=== PATIENT | male | born 1975 | race Caucasian/White ===

== ENCOUNTER 2017-11-19 06:19 | Day surgery (SDC) | payer OTHER ==
[2017-11-16 09:15] VITALS: BMI 27.2
[2017-11-19] MEDS ORDERED: MIDAZOLAM HCL 2 MG/2 ML SINGLE DOSE VIAL ONE (07:53)
[2017-11-19] MEDS ORDERED: PROPOFOL 20 ML ONE ×2 (07:53)
[2017-11-19] MEDS ORDERED: LIDOCAINE HCL/PF 2% SDV 5ML VIAL ONE (07:53)
[2017-11-19] MEDS ORDERED: SEVOFLURANE 250 ML BTL ONE (08:33)
[2017-11-19] MEDS ORDERED: LIDOCAINE HCL 2% (20ML MULTI-DOSE VIAL) NR ONE (08:34)
[2017-11-19] MEDS ORDERED: ceFAZolin SODIUM 1 GM VIAL ONE (08:46)
[2017-11-19] MEDS ORDERED: ceFAZolin SODIUM 1 GM VIAL IVPB ONE (08:48)
[2017-11-19] MEDS ORDERED: BUPIVACAINE HCL/PF 0.5% (5MG/ML) 10 ML VIAL ONE (08:51)
[2017-11-19] MEDS ORDERED: DEXAMETHASONE SOD PHOSPHATE 4 MG/1 ML VIAL ONE (09:01)
[2017-11-19] MEDS ORDERED: BUPIVACAINE HCL/PF 0.5% (5MG/ML) 10 ML VIAL IJ ONE (09:10)
[2017-11-19] MEDS ORDERED: ONDANSETRON 4 MG/2 ML VIAL IVPUSH PRN (09:38)
[2017-11-19] MEDS ORDERED: oxyCODONE HCL 5 MG TABLET PO PRN (09:38)
[2017-11-19] MEDS ORDERED: IBUPROFEN 800 MG/8 ML IJ IVPB PRN (09:38)
[2017-11-19] MEDS ORDERED: LACTATED RINGERS SOLUTION 1,000 ML IV SCH (09:45)
[2017-11-19 10:26] VITALS: TEMP 98.4
--- NOTE | 2017-11-19 10:26 | OP ---
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
[2017-11-19 11:50] VITALS: BP 136/79; PULSE 69
--- NOTE | 2017-11-19 22:01 | OP ---
DATE OF OPERATION: 11/19/2017 PREOPERATIVE DIAGNOSES: Penile deformity and neoplasm of penis. POSTOPERATIVE DIAGNOSES: Penile deformity and neoplasm of penis. PROCEDURE: Penoplasty and excision of penile masses. ATTENDING: Wally Martinez MD ANESTHESIA: General. DESCRIPTION OF OPERATION: Patient was brought in the operating room, placed in the supine position on the operating room table. General anesthesia was administered. Preoperative antibiotics were administered. The patient was then prepped and draped in the usual sterile manner. The patient has had recurrent frenular injury. Scarring of the frenulum causing a tethering and curvature of the penis is noted. In addition, the patient has 2 areas on the mid-shaft of the penis which are different in appearance. 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 The other appears to be a large skin tag-type structure. The patient has signed a consent for correction of the curvature of the penis and removal of these neoplasms of the penis. This had been gone over with the patient preoperatively with direct examination by the surgeon with discussion with the patient. Patient understands all risks and benefits. The patient undergoes a relaxing incision of the frenulum. Because of the scar tissue, flaps are raised in order to allow for untethering of the glans penis from the penile shaft. With this accomplished, the glans penis and upper shaft of the penis are reapproximated using a 2-layer closure. Interrupting 4-0 chromic stitches are utilized. The glans is approximated initially. With excellent hemostasis, the full length of the relaxing incision is accomplished. The flaps allow for adequate relaxation of the scar tissue to allow for a proper appearance and function of the penis. Once this is accomplished, the 2 areas that are noted to have a neoplasm are excised. Interrupted 4-0 chromic stitches are utilized in a 2-layer closure for these wounds. Both these neoplasms are sent for analysis to Pathology. No complications were noted. The patient tolerated the procedure very well. The disposition of the patient was to recovery room. WALLY MARTINEZ M.D. /[id number]
--- NOTE | 2017-11-21 15:06 | PATH ---
Surgical Pathology Report Patient Name: ALMAZ FLORES [facility]. Rec. #: [id number] /Age/Gender: 1975 (Age: 42) / M Account: [id number] Location: [facility] SUR[facility] Taken: 11/19/2017 Received: 11/19/2017 Reported: 11/21/2017 Physicians: Luis Sawant Specimen(s) Received A: PENILE MASS B: PENILE MASS Clinical History Penile deformity/penile mass Final Diagnosis A. SKIN, PENILE MASS, SHAVE BIOPSY: FIBROEPITHELIAL POLYP. SEE COMMENT. B. SKIN, PENILE MASS, EXCISION: INTRADERMAL NEVUS. SEE COMMENT. Comment: Immunohistochemical stains performed and interpreted at [place], [place] ([id number]) for part A, show HPV 16/18 and HPV 6/11 are negative. For part B, nevi are diffusely positive for S100, while negative for HMB-45. Electronically Signed Vanita Argueta M.D. Gross Description A. Received in formalin labeled "penile mass," is a 0.5 x 0.5 x 0.2 cm hahn, verrucoid skin shave. The base is inked green and the specimen is bisected. The specimen is entirely submitted in one cassette. B. Received in formalin labeled "penile mass," is a 0.5 x 0.4 x 0.3 cm hahn, polypoid portion of skin. The base is inked green and the specimen is submitted in toto in one cassette. /11/19/201711/19/2017
== END 2017-11-19 11:55 | disposition home or self-care (01) ==
LOC: JASU-SURG 06:19
PROVIDERS: ATTEND Urology
PROC: 0JB80ZX Excision of Abdomen Subcutaneous Tissue and Fascia, Open Approach, Diagnostic (ICD-10-PCS; 2017-11-19)
PROC: 0VBS0ZZ Excision of Penis, Open Approach (ICD-10-PCS; principal; 2017-11-19 08:00)
DX: D29.0 Benign neoplasm of penis (principal); N48.89 Other specified disorders of penis
CPT/HCPCS: 88304-TC; 88305-TC; 94760